=== PATIENT | female | born 1990 | race Caucasian/White ===

== ENCOUNTER 2019-10-05 08:30 | Outpatient (CLI) | payer OTHER ==
[2019-10-05 09:26] VITALS: BP 131/81; PULSE 78; RESP 18; TEMP 97.4
--- NOTE | 2019-10-06 06:39 | P.MSEPDOC ---
Presenting Problems - Arrival Data Date of Arrival on Unit: 10/05/19 Time of Arrival on Unit: 08:30 Mode of Transport: Ambulatory - Complaint OB-Reason for Admission/Chief Complaint: Vaginal Bleeding Medical History - Information : 1 Para: 0 Term: 0 : 0 Abortions: Spontaneous or Elective: 0 Number of Living Children: 0 - Gestational Age Gestational Age by TYLOR (wks/days): 40 Weeks and 0 Days - History Complications: GBS+ Review of Systems - Review of Systems Constitutional: No problems Breast: No problems ENT: No problems Cardiovascular: No problems Respiratory: No problems Gastrointestinal: No problems Genitourinary: No problems Musculoskeletal: No problems Neurological: No problems Skin: No problems Vital Signs - Temperature Temperature: 97.4 F Temperature Source: Temporal Artery Scan - Pulse Right Brachial Pulse Rate: 78 Pulse Assessment Method: Automatic Cuff - Respirations Respiratory Rate: 18 Oxygen Delivery Method: Room Air O2 Sat by Pulse Oximetry: 98 - Blood Pressure Right Arm Blood Pressure: 131/81 Blood Pressure Mean: 97 Blood Pressure Source: Automatic Cuff Medical Screen Scoring (Pre) - Cervical Exam Dilation: 1-3 cm = 1 Effacement: More than 50% = 2 Membranes: Intact - Uterine Contractions Frequency: > 5 minutes apart = 1 Duration: N/A Intensity: N/A - Maternal Vital Signs Maternal Temperature: N/A Maternal Blood Pressure: N/A Signs of Preeclampsia: N/A Maternal Respirations: N/A - Maternal Trauma Maternal Trauma: N/A - Assessment - Baby A Baseline FHR: 130 Heart Rate - NICHD Category: Category I (Normal) = 0 NST: Reactive Position: N/A Station: N/A - Total Score - Baby A Total Score - Baby A: 4 - Total Score - Baby B Total Score - Baby B: 4 - Total Score - Baby C Total Score - Baby C: 4 - Level of Risk - Baby A Level of Risk - Baby A: Low (0-5) - Level of Risk - Baby B Level of Risk - Baby B: Low (0-5) - Level of Risk - Baby C Level of Risk - Baby C: Low (0-5) Physician Notification (Pre) - Physician Notified Physician Notified Date: 10/05/19 Physician Notified Time: 09:03 New Order Received: Yes - Notification Comment Comment: hand held ultrasound at bedside to check fluid around baby, discharge pt home and return tomorrow for induction unless s/s of labor warrant earlier visit Disposition - Disposition OB Disposition: Triage, Discharge to home, Written follow up instructions reviewed Discharge Date: 10/05/19 Discharge Time: 09:15 I agree with the RN Medical Screening Exam: Yes Risk & Benefit of care provided described in d/c instruction: Yes Diagnosis: FALSE LABOR AT OR AFTER 37 COMPLETED WEEKS OF GESTATION
== END 2019-10-05 09:15 | disposition home or self-care (01) ==
LOC: FBPOP 08:30
PROVIDERS: ATTEND Obstetrics & Gynecology
DX: O47.1 False labor at or after 37 completed weeks of gestation (principal); Z3A.40 40 weeks gestation of pregnancy
CPT/HCPCS: 59025; 84112; 99213

== ENCOUNTER 2019-10-05 10:22 | Inpatient (IN) | payer OTHER ==
--- NOTE | 2019-10-05 09:14 | P.HPOB ---
History of Present Illness H&P Date: 10/05/19 Chief Complaint: Postdates induction. This patient is a pleasant 28-year-old 2 para 1 female estimated date of confinement 10/05/2019 estimated gestational age 40 and one sevenths weeks who is presenting to labor and delivery for induction of labor. Patient's care has been uncomplicated. Patient is requesting induction at this time. Review of Systems Genitourinary: Reports Menstruation: Reports amenorrhea Past Medical History Additional Past Medical History / Comment(s): Congenital right retinoblastoma. Age 4. Additional Past Surgical History / Comment(s): Left ear surgery and right eye surgery. Past Anesthesia/Blood Transfusion Reactions: No Reported Reaction Smoking Status: Never smoker Past Alcohol Use History: None Reported Past Drug Use History: None Reported Medications and Allergies Allergies Allergy/AdvReac Type Severity Reaction Status Date / Time Sulfa (Sulfonamide Allergy Unknown Verified 10/05/19 08:41 Antibiotics) Childhood Exam - OBG Physical Exam Abdomen: bowel sounds normal, no diffuse tenderness, no bruit present, no guarding noted, no hepatomegaly, no splenomegaly, no mass Vulva: both: normal Vagina: normal moisture, no discharge Cervix: no lesion (Cervix is 2 cm and soft.), no discharge Uterus: enlarged (Fundal height 38 cm) Results blood work shows she is O positive, rubella immune, RPR nonreactive, hepatitis B negative, HIV is nonreactive, Glucola was normal, ultrasounds have been normal. Group B strep was positive. Assessment and Plan Assessment: This is a pleasant 28-year-old 2 para 0 female 40 and one sevenths weeks gestation who is presenting to labor and delivery for elective induction of labor. Patient's also had a positive group B strep culture. Plan is antibiotic prophylaxis and anticipate vaginal delivery. (1) 40 weeks gestation of Status: Acute Code(s): Z3A.40 - 40 WEEKS GESTATION OF SNOMED Code(s): 69687899 (2) Group B streptococcal carriage complicating Status: Acute Code(s): O99.820 - STREPTOCOCCUS B CARRIER STATE COMPLICATING SNOMED Code(s): 667821300424970 (3) Elective induction of labor planned Status: Acute Code(s): BKW9961 - SNOMED Code(s): 388768955
[2019-10-06] MEDS ORDERED: OXYTOCIN 10 UNIT/ML 1 ML VIAL IM PRN (06:05)
[2019-10-06] MEDS ORDERED: AMPICILLIN 2,000 MG in SODIUM CHLORIDE 0.9% 100 ML IVPB STA (06:05)
[2019-10-06] MEDS ORDERED: LIDOCAINE 0.5% (PF) 5 MG/ML (50 ML SDV) SQ PRN (06:05)
[2019-10-06] MEDS ORDERED: TERBUTALINE 1 MG/ML VIAL SQ PRN (06:05)
[2019-10-06] MEDS ORDERED: OXYTOCIN 30 UNITS/500 ML NS 30 UNIT in SALINE 1 500ML.BAG IV SCH (06:05)
[2019-10-06] MEDS ORDERED: METHYLERGONOVINE 0.2 MG/ML 1 ML AMP IM PRN (06:05)
[2019-10-06] MEDS ORDERED: CARBOPROST TROMETHAMINE 250 MCG/ML 1 ML AMP IM PRN (06:05)
[2019-10-06] MEDS: LACTATED RINGERS 1,000 ML IV SCH ×2 (06:21→08:43)
[2019-10-06 06:32] LABS: Basophils % (A) 0 %; Eosinophils # (A) 0.1 k/uL (0-0.7); Eosinophils % (A) 2 %; HCT 38.7 % (34.0-46.0); HGB 13.5 gm/dL (11.4-16.0); Lymphocytes # (A) 2.9 k/uL (1.0-4.8); Lymphocytes % (A) 34 %; MCH 30.8 pg (25.0-35.0); MCHC 34.9 g/dL (31.0-37.0); MCV 88.3 fL (80.0-100.0); Mean Platelet Volume 8.9; Monocytes # (A) 0.4 k/uL (0-1.0); Monocytes % (A) 4 %; Neutrophils # (A) 5.1 k/uL (1.3-7.7); Neutrophils % (A) 59 %; Platelet Count 248 k/uL (150-450); RBC 4.38 m/uL (3.80-5.40); RDW 12.5 % (11.5-15.5); WBC 8.7 k/uL (3.8-10.6)
[2019-10-06 06:37] VITALS: RESP 16
[2019-10-06] MEDS ORDERED: BUTORPHANOL 1 MG/ML 1 ML VIAL IV PRN (06:38)
[2019-10-06] MEDS ORDERED: AMPICILLIN 1,000 MG in SODIUM CHLORIDE 0.9% 50 ML IVPB SCH (10:00)
[2019-10-06] MEDS ORDERED: ROPIVACAINE 100 MG, fentaNYL (PF) 200 MCG in SODIUM CHLORIDE 0.9% 76 ML EPIDURAL ONE (10:29)
[2019-10-06] MEDS ORDERED: OXYTOCIN 20 UNITS/1000 ML NS 1,000 ML IV SCH (12:01)
[2019-10-06] MEDS ORDERED: SIMETHICONE 80 MG CHEWABLE PO PRN (12:01)
[2019-10-06] MEDS ORDERED: diphenhydrAMINE 50 MG/ML 1 ML VIAL IVP PRN (12:01)
[2019-10-06] MEDS ORDERED: LANOLIN CREAM 5 GM TUBE TOPICAL PRN (12:01)
[2019-10-06] MEDS ORDERED: ACETAMINOPHEN TAB 325 MG TAB PO PRN (12:01)
[2019-10-06] MEDS ORDERED: BISACODYL 10 MG SUPP RECTAL PRN (12:01)
[2019-10-06] MEDS ORDERED: WITCH HAZEL 1 EACH MED..PAD TOPICAL PRN (12:01)
[2019-10-06] MEDS ORDERED: BENZOCAINE/MENTHOL SPRAY 1 GM/SPRAY AEROSOL TOPICAL PRN (12:01)
[2019-10-06] MEDS ORDERED: HYDROCORTISONE 2.5% RECTAL CREAM 30 GM TUBE RECTAL PRN (12:01)
[2019-10-06] MEDS ORDERED: diphenhydrAMINE 25 MG CAP PO PRN (12:01)
[2019-10-06] MEDS ORDERED: ZOLPIDEM 5 MG TAB PO PRN (12:01)
--- NOTE | 2019-10-06 12:42 | P.PROBDLV ---
Vaginal Delivery Note - . Vaginal Delivery Note: Normal vaginal delivery viable male infant Apgars 8 and 9 delivery time is 1128 hrs. Please see dictated H&P for intimate details of this patient's admission. Brief summary this is a pleasant 28-year-old 2 para 0 female estimated gestational age 40 and one sevenths weeks who is admitted to labor and delivery for induction of labor. On admission patient is 2 cm dilated has artificial rupture membranes for lightly tinged meconium fluid. heart tones are reassuring. Patient's labor is induced with Pitocin per protocol. Patient received one dose of Stadol and then receives an epidural for pain control. Labor progresses very quickly and she gets to complete. She pushes the head to the perineum the posterior perineum is supported. We have controlled delivery of the infant's head over the intact perineum. Mouth and nares are bulb suctioned there is no evidence of a nuchal cord. With gentle downward traction we then have deliver the anterior and posterior shoulder and rest this 's body. Is a vigorous viable male Apgars are 8 and 9 delivery time was 1128 hrs. Infant has spontaneous respirations and good cry and low pressure firer is present for delivery. is late the mother's abdomen. The cord is allowed to stop pulsating. Cord is then doubly clamped and cut and appears to be trivascular. Placenta is then spontaneously delivered intact. Estimated blood loss is 150 mL. Is a first-degree posterior laceration was repaired with 3-0 Vicryl usual fashion good reapproximation is noted. All counts correct 3. There are no complications. Infant and mother stable delivery room.
[2019-10-06] MEDS: IBUPROFEN 600 MG TAB PO PRN (17:54)
[2019-10-07] MEDS: IBUPROFEN 600 MG TAB PO PRN ×2 (00:06→07:47)
[2019-10-07] MEDS: SENNOSIDES-DOCUSATE SODIUM 1 EACH TAB PO SCH ×2 (05:30→07:46)
--- NOTE | 2019-10-07 06:43 | P.PNOBGVD ---
Subjective - Subjective Patient reports: Reports appetite normal, Reports voiding normally, Reports pain well controlled, Reports ambulating normally : doing well Objective - Latest Vital Signs Latest vital signs: Vital Signs Temp Pulse Resp BP Pulse Ox 10/07/19 00:00 98.0 F 80 16 120/62 10/06/19 20:00 98.4 F 108 H 16 122/82 10/06/19 15:33 99.1 F 71 16 111/64 98 10/06/19 14:00 82 16 103/61 10/06/19 13:26 81 16 108/56 10/06/19 13:01 100.2 F H 78 16 102/51 10/06/19 12:46 75 16 108/52 10/06/19 12:28 82 16 111/62 10/06/19 12:14 85 16 121/82 10/06/19 12:01 80 16 112/88 Intake and Output 10/06/19 10/06/19 10/07/19 14:59 22:59 06:59 Output Total 150 Balance -150 Output: Estimated Blood Loss 150 Other: # Voids 1 - Exam Lungs: bilateral: normal Chest: Normal S1, Normal S2 Extremities: Present: normal Abdomen: Present: normal appearance, soft Uterus: Present: normal, firm Assessment and Plan Assessment: day #1. Patient is resting without complaints. Vital signs are stable she is afebrile. Uterus is firm nontender she's having normal lochia. Baby is having some difficulty feeding and therefore most likely patient will stay today, however we'll reevaluate later today for possible discharge. (1) 40 weeks gestation of Current Visit: No Status: Acute Code(s): Z3A.40 - 40 WEEKS GESTATION OF SNOMED Code(s): 21995215 (2) Group B streptococcal carriage complicating Current Visit: No Status: Acute Code(s): O99.820 - STREPTOCOCCUS B CARRIER STATE COMPLICATING SNOMED Code(s): 887415199018542 (3) Elective induction of labor planned Current Visit: No Status: Acute Code(s): VIJ3611 - SNOMED Code(s): 554977181
[2019-10-07 16:12] VITALS: BP 114/68; PULSE 78; TEMP 97.8
--- NOTE | 2019-10-07 16:36 | P.DS ---
Providers Date of admission: 10/06/19 05:45 Expected date of discharge: 10/07/19 Attending physician: Bala Ruiz Primary care physician: Matt Armijoor - Discharge Diagnosis(es) (1) 40 weeks gestation of Current Visit: No Status: Acute (2) Group B streptococcal carriage complicating Current Visit: No Status: Acute (3) Elective induction of labor planned Current Visit: No Status: Acute Hospital Course: Please see dictated H&P for intimate details of this patient's admission. Brief summary this is a pleasant 28-year-old 2 para 0 female 40 and one sevenths weeks gestation admitted for induction of labor. Patient is admitted she is given antibiotics for positive strep culture, she has induction of labor and quickly goes on to have a vaginal delivery viable male . Please see dictated delivery note. day #1 patient's felt be stable for discharge home follow up with me in 6 weeks Patient Condition at Discharge: Good Plan - Discharge Summary New Discharge Prescriptions: New Ibuprofen [Motrin] 600 mg PO Q6HR PRN #30 tab PRN Reason: Mild Pain Or Fever >= 100.5 No Action Pnv No.95/Ferrous Fum/Folic AC [ Multivitamin Tablet] 1 each PO DAILY Discharge Medication List Pnv No.95/Ferrous Fum/Folic AC [ Multivitamin Tablet] 1 each PO DAILY 10/06/19 [History] Ibuprofen [Motrin] 600 mg PO Q6HR PRN #30 tab 10/07/19 [Rx] Follow up Appointment(s)/Referral(s): Bala Ruiz MD [STAFF PHYSICIAN] - 11/13/19 10:30 am Patient Instructions/Handouts: Vaginal Delivery (DC) Activity/Diet/Wound Care/Special Instructions: No intercourse or anything per vagina for 6 weeks. Please call if any fever, chills, excessive vaginal bleeding, and/or abdominal pain. Discharge Disposition: HOME SELF-CARE
== END 2019-10-07 16:55 | disposition home or self-care (01) | DRG 807 ==
LOC: 4FBP 10-06 05:45
PROVIDERS: ADMIT Obstetrics & Gynecology; ATTEND Obstetrics & Gynecology
PROC: 10907ZC Drainage of Amniotic Fluid, Therapeutic from Products of Conception, Via Natural or Artificial Opening (ICD-10-PCS; principal; 2019-10-06)
PROC: 00HU33Z Insertion of Infusion Device into Spinal Canal, Percutaneous Approach (ICD-10-PCS; principal; 2019-10-06)
PROC: 3E0R3NZ Introduction of Analgesics, Hypnotics, Sedatives into Spinal Canal, Percutaneous Approach (ICD-10-PCS; principal; 2019-10-06)
PROC: 10E0XZZ Delivery of Products of Conception, External Approach (ICD-10-PCS; principal; 2019-10-06)
PROC: 3E033VJ Introduction of Other Hormone into Peripheral Vein, Percutaneous Approach (ICD-10-PCS; principal; 2019-10-06)
DX: O48.0 Post-term pregnancy (principal); Z37.0 Single live birth; Z3A.40 40 weeks gestation of pregnancy; Z85.840 Personal history of malignant neoplasm of eye; O99.824 Streptococcus B carrier state complicating childbirth; O77.0 Labor and delivery complicated by meconium in amniotic fluid; Z88.2 Allergy status to sulfonamides
CPT/HCPCS: 85025; 86850; 86900; 86901; 88307

== ENCOUNTER 2021-06-10 23:54 | Outpatient (CLI) | payer OTHER ==
--- NOTE | 2021-06-11 00:58 | US ---
EXAMINATION TYPE: US OB >= 14 wk fetus DATE OF EXAM: 06/11/2021 COMPARISON: None CLINICAL HISTORY: Trauma to lower abdomen TECHNIQUE: Transabdominal (TA) GESTATIONAL AGE / DATING Physician Established: 07/05/2021 (36 weeks/4 days) EDC: 07/05/2021 Dates by First Scan: No previous this is first scan Dates by Current Scan: (37 weeks/0 days) EDC: 07/05/2021 Beta HCG (if available): not available SURVEY IUP: Single PLACENTA: Fundal PREVIA: No Previa JUAN: 13.2 cm Normal CERVICAL LENGTH (transabdominal: norm > 3.0cm): 3.4 cm BIOMETRY PRESENTATION: Vertex BPD: 8.9 cm 36 weeks / 0 days HC: 33.7 cm 38 weeks / 5 days AC: 31.6 cm 35 weeks / 4 days FL: 7.3 cm 37 weeks / 2 days ESTIMATED WEIGHT IN GRAMS: 2926 grams ESTIMATED WEIGHT IN LBS/OZ: 6 lbs. 7 oz. WEIGHT PERCENTAGE BASED ON ESTABLISHED DATES: 49% HC/AC: 1.07 Normal FL/AC: 23 Normal HEART RATE: 136 bpm RHYTHM: Normal No abnormality detected. IMPRESSION: No complicating process seen.
[2021-06-11 01:51] VITALS: BP 114/67; PULSE 76; RESP 18; TEMP 97.4
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
== END 2021-06-11 00:45 | disposition home or self-care (01) ==
LOC: FBPOP 23:54
PROVIDERS: ATTEND Obstetrics & Gynecology
DX: O71.7 Obstetric hematoma of pelvis (principal); Z3A.36 36 weeks gestation of pregnancy
CPT/HCPCS: 59025; 76805; 99213

== ENCOUNTER 2021-07-06 00:04 | Inpatient (IN) | payer OTHER ==
[2021-07-06] MEDS ORDERED: METHYLERGONOVINE 0.2 MG/ML 1 ML AMP IM PRN (00:12)
[2021-07-06] MEDS ORDERED: OXYTOCIN 10 UNIT/ML 1 ML VIAL IM PRN (00:12)
[2021-07-06] MEDS ORDERED: AMPICILLIN 2,000 MG in SODIUM CHLORIDE 0.9% 100 ML IVPB STA (00:12)
[2021-07-06] MEDS ORDERED: CARBOPROST TROMETHAMINE 250 MCG/ML 1 ML AMP IM PRN (00:12)
[2021-07-06] MEDS ORDERED: LIDOCAINE 0.5% (PF) 5 MG/ML (50 ML SDV) SQ PRN (00:12)
[2021-07-06] MEDS ORDERED: TERBUTALINE 1 MG/ML VIAL SQ PRN (00:12)
[2021-07-06] MEDS ORDERED: OXYTOCIN 30 UNITS/500 ML NS 30 UNIT in SALINE 1 500ML.BAG IV SCH ×2 (00:15→04:15)
[2021-07-06 00:24] VITALS: RESP 16
[2021-07-06] MEDS: LACTATED RINGERS 1,000 ML IV SCH ×2 (00:24→00:39)
[2021-07-06 00:37] LABS: Basophils # (A) 0.1 k/uL (0-0.2); Basophils % (A) 1 %; Eosinophils # (A) 0.2 k/uL (0-0.7); Eosinophils % (A) 2 %; HCT 40.6 % (34.0-46.0); HGB 14.1 gm/dL (11.4-16.0); Lymphocytes # (A) 3.1 k/uL (1.0-4.8); Lymphocytes % (A) 33 %; MCH 30.8 pg (25.0-35.0); MCHC 34.8 g/dL (31.0-37.0); MCV 88.6 fL (80.0-100.0); Mean Platelet Volume 8.2; Monocytes # (A) 0.4 k/uL (0-1.0); Monocytes % (A) 5 %; Neutrophils # (A) 5.5 k/uL (1.3-7.7); Neutrophils % (A) 58 %; Platelet Count 235 k/uL (150-450); RBC 4.58 m/uL (3.80-5.40); RDW 13.5 % (11.5-15.5); WBC 9.4 k/uL (3.8-10.6)
[2021-07-06] MEDS ORDERED: ROPIVACAINE 100 MG, fentaNYL (PF). 200 MCG in SODIUM CHLORIDE 0.9% 76 ML EPIDURAL ONE (00:46)
--- NOTE | 2021-07-06 02:05 | P.HPOB ---
History of Present Illness H&P Date: 07/06/21 Chief Complaint: labor 30 year old presents at 40 weeks 1 day in labor. Her cervix is 5-6/90/-2 and she is garrison every 2-3 minutes. heart tones 140 with moderate variability and reactive. Review of Systems All systems: negative Constitutional: Denies chills, Denies fever Eyes: denies blurred vision, denies pain Ears, nose, mouth and throat: Denies headache, Denies sore throat Cardiovascular: Denies chest pain, Denies shortness of breath Respiratory: Denies cough Gastrointestinal: Denies abdominal pain, Denies diarrhea, Denies nausea, Denies vomiting Genitourinary: Denies dysuria, Denies hematuria Musculoskeletal: Denies myalgias Integumentary: Denies pruritus, Denies rash Neurological: Denies numbness, Denies weakness Psychiatric: Denies anxiety, Denies depression Endocrine: Denies fatigue, Denies weight change Past Medical History Additional Past Medical History / Comment(s): Congenital right retinoblastoma. Age 4. History of Any Multi-Drug Resistant Organisms: None Reported Additional Past Surgical History / Comment(s): Left ear surgery and right eye surgery. Past Anesthesia/Blood Transfusion Reactions: No Reported Reaction Past Psychological History: No Psychological Hx Reported Smoking Status: Never smoker Past Alcohol Use History: None Reported Past Drug Use History: None Reported - Past Family History Father Family Medical History: Cancer Additional Family Medical History / Comment(s): cancer Medications and Allergies Home Medications Medication Instructions Recorded Confirmed Type Pnv No.95/Ferrous Fum/Folic AC 1 each PO DAILY 10/06/19 07/06/21 History [ Multivitamin Tablet] Ciprofloxacin HCl/Dexameth 5 drops LEFT EAR BID 07/06/21 07/06/21 History [Ciproflox-Dexameth Otic Susp] Allergies Allergy/AdvReac Type Severity Reaction Status Date / Time Sulfa (Sulfonamide Allergy Unknown Verified 07/06/21 00:11 Antibiotics) Childhood Exam Osteopathic Statement: *. No significant issues noted on an osteopathic structural exam other than those noted in the History and Physical/Consult. Vital Signs Temp Pulse Resp BP 07/06/21 00:14 97.4 F L 79 16 115/79 Intake and Output 07/05/21 07/05/21 07/06/21 14:59 22:59 06:59 Other: Weight 72.575 kg Heart: Regular rate and rhythm Lungs: Clear to auscultation bilaterally Abdomen: Soft, nontender Extremities: Negative Homans sign Results Result Diagrams: 07/06/21 00:13 Assessment and Plan (1) Normal labor Current Visit: Yes Status: Acute Code(s): O80 - ENCOUNTER FOR FULL-TERM UNCOMPLICATED DELIVERY; Z37.9 - OUTCOME OF DELIVERY, UNSPECIFIED SNOMED Code(s): 40731254 (2) 40 weeks gestation of Current Visit: No Status: Acute Code(s): Z3A.40 - 40 WEEKS GESTATION OF SNOMED Code(s): 22958946 Plan: 1. admit to [facility] 2. epidural for pain control 3. expectant management 4. anticipate normal vaginal delivery
[2021-07-06] MEDS ORDERED: HYDROCORTISONE 2.5% RECTAL CREAM 30 GM TUBE RECTAL PRN (04:02)
[2021-07-06] MEDS ORDERED: SIMETHICONE 80 MG CHEWABLE PO PRN (04:02)
[2021-07-06] MEDS ORDERED: BENZOCAINE/MENTHOL SPRAY 1 GM/SPRAY AEROSOL TOPICAL PRN (04:02)
[2021-07-06] MEDS ORDERED: ACETAMINOPHEN TAB 325 MG TAB PO PRN (04:02)
[2021-07-06] MEDS ORDERED: IBUPROFEN 600 MG TAB PO PRN (04:02)
[2021-07-06] MEDS ORDERED: LANOLIN CREAM 5 GM TUBE TOPICAL PRN (04:02)
[2021-07-06] MEDS ORDERED: diphenhydrAMINE 25 MG CAP PO PRN (04:02)
[2021-07-06] MEDS ORDERED: ZOLPIDEM 5 MG TAB PO PRN (04:02)
[2021-07-06] MEDS ORDERED: diphenhydrAMINE 50 MG CAP PO PRN (04:02)
[2021-07-06] MEDS ORDERED: diphenhydrAMINE 50 MG/ML 1 ML VIAL IVP PRN ×2 (04:02)
--- NOTE | 2021-07-06 04:02 | P.PROBDLV ---
Vaginal Delivery Note - . Vaginal Delivery Note: 30 year old presents at 40 weeks 1 day in labor. Her cervix is 5-6/90/-2 and she is garrison every 2-3 minutes. heart tones 140 with moderate variability and reactive. She is admitted to [facility] and received an epidural. Her cervix is completely dilated at 3:42 AM and amniotomy performed at 3:45 AM, clear fluid noted. She pushed, and delivered a viable female over intact perineum under epidural anesthesia at 3:51 AM. Head delivered OA, anterior shoulder delivered gentle downward guidance followed by posterior shoulder and rest of body. Nose and mouth bulb suctioned, cord clamped and cut, placed mother's abdomen. Apgars 9, 9, weight 7 pounds 6.2 ounces. Placenta delivered spontaneously, intact with three-vessel cord at 3:53 AM. Vagina, cervix, and perineum were inspected. No lacerations noted. Estimated blood loss 150 mL. Mother and baby in stable condition.
[2021-07-06] MEDS ORDERED: AMPICILLIN 1,000 MG in SODIUM CHLORIDE 0.9% 50 ML IVPB SCH (04:30)
[2021-07-06] MEDS: SENNOSIDES-DOCUSATE SODIUM 1 EACH TAB PO SCH ×2 (11:11→21:40)
[2021-07-07 01:37] VITALS: TEMP 98.4
[2021-07-07 07:03] LABS: Basophils % (A) 0 %; Eosinophils # (A) 0.2 k/uL (0-0.7); Eosinophils % (A) 2 %; HCT 37.1 % (34.0-46.0); HGB 12.9 gm/dL (11.4-16.0); Lymphocytes % (A) 31 %; MCH 31.2 pg (25.0-35.0); MCHC 34.8 g/dL (31.0-37.0); MCV 89.5 fL (80.0-100.0); Mean Platelet Volume 8.5; Monocytes # (A) 0.4 k/uL (0-1.0); Monocytes % (A) 4 %; Neutrophils # (A) 5.8 k/uL (1.3-7.7); Neutrophils % (A) 61 %; Platelet Count 190 k/uL (150-450); RBC 4.15 m/uL (3.80-5.40); WBC 9.6 k/uL (3.8-10.6)
--- NOTE | 2021-07-07 08:44 | P.DS ---
Providers Date of admission: 07/06/21 00:04 Expected date of discharge: 07/07/21 Attending physician: Bala Ruiz Primary care physician: Stated None Hospital Course: Cary is doing very well day 1. She is ambulating, voiding and tolerating her diet. She voices no complaints is requesting discharge home today. Vital signs are stable and she is afebrile. Heart regular, lungs clear, extremities without pain. Abdomen soft, nontender, L sounds are noted and her uterus is firm below the umbilicus. Assessment day 1. Plan discharged home follow up with Dr. Ruiz in 6 weeks. Discharge instructions were otherwise reviewed and all questions were answered for her prior to her discharge. Patient Condition at Discharge: Good Plan - Discharge Summary New Discharge Prescriptions: New Ibuprofen [Motrin] 600 mg PO Q6HR PRN #30 tab PRN Reason: Pain No Action Pnv No.95/Ferrous Fum/Folic AC [ Multivitamin Tablet] 1 each PO DAILY Ciprofloxacin HCl/Dexameth [Ciproflox-Dexameth Otic Susp] 5 drops LEFT EAR BID Discharge Medication List Pnv No.95/Ferrous Fum/Folic AC [ Multivitamin Tablet] 1 each PO DAILY 10/06/19 [History] Ciprofloxacin HCl/Dexameth [Ciproflox-Dexameth Otic Susp] 5 drops LEFT EAR BID 07/06/21 [History] Ibuprofen [Motrin] 600 mg PO Q6HR PRN #30 tab 07/06/21 [Rx] Follow up Appointment(s)/Referral(s): Bala Ruiz MD [STAFF PHYSICIAN] - 08/15/21 11:15 am Patient Instructions/Handouts: Vaginal Delivery (DC) Activity/Diet/Wound Care/Special Instructions: No intercourse or anything per vagina for 6 weeks. Please call if any fever, chills, excessive vaginal bleeding, and/or abdominal pain. Discharge Disposition: HOME SELF-CARE
[2021-07-07 11:01] VITALS: BP 106/50; PULSE 66
[2021-07-07] MEDS: SENNOSIDES-DOCUSATE SODIUM 1 EACH TAB PO SCH (15:14)
== END 2021-07-07 15:10 | disposition home or self-care (01) | DRG 807 ==
LOC: 4FBP 00:04
PROVIDERS: ADMIT Obstetrics & Gynecology; ATTEND Obstetrics & Gynecology
PROC: 10E0XZZ Delivery of Products of Conception, External Approach (ICD-10-PCS; principal; 2021-07-06)
DX: O80 Encounter for full-term uncomplicated delivery (principal); Z37.0 Single live birth; Z3A.40 40 weeks gestation of pregnancy; Z85.840 Personal history of malignant neoplasm of eye
CPT/HCPCS: 85025; 86850; 86900; 86901

== ENCOUNTER 2022-01-28 08:23 | Emergency (ER) | payer OTHER ==
[2022-01-28] MEDS ORDERED: DIPHENOX-ATROP 2.5-0.025 MG 1 EACH TAB PO STA (08:33)
[2022-01-28] MEDS ORDERED: ONDANSETRON 4 MG/2 ML VIAL IVP STA (08:33)
[2022-01-28] MEDS ORDERED: SODIUM CHLORIDE 0.9% 500 ML 500 ML IV STA (08:33)
[2022-01-28] MEDS ORDERED: SODIUM CHLORIDE 0.9% 1,000 ML IV STA (08:33)
--- NOTE | 2022-01-28 08:36 | ED ---
General Adult HPI - General Chief complaint: Nausea/Vomiting/Diarrhea Stated complaint: Nausea/Vomiting Time Seen by Provider: 01/28/22 08:25 Source: patient, RN notes reviewed, old records reviewed Mode of arrival: ambulatory Limitations: no limitations - History of Present Illness Initial comments: This is a 31-year-old female presents emergency department stating that she has been having nausea vomiting and diarrhea for about 11 hours. Patient states she has general abdominal pain but mostly secondary to vomiting she thinks. Patient denies any dysuria hematuria urinary frequency. Patient denies any point tenderness of the abdomen. Patient denies any back pain. Patient denies any chest pain difficulty breathing shortness of breath. Patient states she has a mild headache secondary to the fact she didn't sleep at all last night. - Related Data Home Medications Medication Instructions Recorded Confirmed Pnv No.95/Ferrous Fum/Folic AC 1 each PO DAILY 10/06/19 07/06/21 [ Multivitamin Tablet] Ciprofloxacin HCl/Dexameth 5 drops LEFT EAR BID 07/06/21 07/06/21 [Ciproflox-Dexameth Otic Susp] Previous Rx's Medication Instructions Recorded Ibuprofen [Motrin] 600 mg PO Q6HR PRN #30 tab 07/06/21 Allergies Allergy/AdvReac Type Severity Reaction Status Date / Time Sulfa (Sulfonamide Allergy Unknown Verified 01/28/22 08:27 Antibiotics) Childhood Review of Systems ROS Statement: Those systems with pertinent positive or pertinent negative responses have been documented in the HPI. ROS Other: All systems not noted in ROS Statement are negative. Past Medical History Additional Past Medical History / Comment(s): Congenital right retinoblastoma. Age 4. History of Any Multi-Drug Resistant Organisms: None Reported Additional Past Surgical History / Comment(s): Left ear surgery and right eye surgery. Past Anesthesia/Blood Transfusion Reactions: No Reported Reaction Past Psychological History: No Psychological Hx Reported Smoking Status: Never smoker Past Alcohol Use History: Occasional Past Drug Use History: None Reported - Past Family History Father Family Medical History: Cancer Additional Family Medical History / Comment(s): cancer General Exam - General Exam Comments Initial Comments: GENERAL: Patient is well-developed and well-nourished. Patient is nontoxic and well- hydrated and is in mild distress. ENT: Neck is soft and supple. No significant lymphadenopathy is noted. Oropharynx is clear. Dry mucous membranes. Neck has full range of motion without elic iting any pain. EYES: The sclera were anicteric and conjunctiva were pink and moist. Extraocular m ovements were intact and pupils were equal round and reactive to light. Eyelids were unremarkable. PULMONARY: Unlabored respirations. Good breath sounds bilaterally. No audible rales rhonchi or wheezing was noted. CARDIOVASCULAR: There is a regular rate and rhythm without any murmurs gallops or rubs. ABDOMEN: Soft and nontender with normal bowel sounds. SKIN: Skin is clear with no lesions or rashes and otherwise unremarkable. NEUROLOGIC: Patient is alert and oriented x3. Cranial nerves II through XII are grossly intact. Motor and sensory are also intact. Normal speech, volume and content. Symmetrical smile. MUSCULOSKELETAL: Normal extremities with adequate strength and full range of motion. LYMPHATICS: No significant lymphadenopathy is noted PSYCHIATRIC: Normal psychiatric evaluation. Limitations: no limitations Course Vital Signs 01/28/22 08:24 Temperature 98.6 F Pulse Rate 106 H Respiratory 18 Rate Blood Pressure 103/68 O2 Sat by Pulse 96 Oximetry Medical Decision Making - Medical Decision Making I will back into the room after the patient had received Zofran and Lomotil and she also received 1-1/2 L of normal saline. Patient states she was feeling considerably better and she no longer was vomiting or having diarrhea. Patient will be sent home with some Zofran. - Lab Data Result diagrams: 01/28/22 08:48 01/28/22 08:48 Lab Results 01/28/22 01/28/22 01/28/22 Range/Units 08:48 08:48 08:58 WBC 10.0 (3.8-10.6) k/uL RBC 5.57 H (3.80-5.40) m/uL Hgb 16.9 H (11.4-16.0) gm/dL Hct 48.9 H (34.0-46.0) % MCV 87.9 (80.0-100.0) fL MCH 30.3 (25.0-35.0) pg MCHC 34.5 (31.0-37.0) g/dL RDW 12.8 (11.5-15.5) % Plt Count 244 (150-450) k/uL MPV 7.1 Neutrophils % 94 % Lymphocytes % 2 % Monocytes % 2 % Eosinophils % 1 % Basophils % 0 % Neutrophils # 9.5 H (1.3-7.7) k/uL Lymphocytes # 0.2 L (1.0-4.8) k/uL Monocytes # 0.2 (0-1.0) k/uL Eosinophils # 0.1 (0-0.7) k/uL Basophils # 0.0 (0-0.2) k/uL Manual Slide Review Performed RBC Morphology Normal Sodium 138 (137-145) mmol/L Potassium 4.4 (3.5-5.1) mmol/L Chloride 107 (98-107) mmol/L Carbon Dioxide 17 L (22-30) mmol/L Anion Gap 14 mmol/L BUN 19 H (7-17) mg/dL Creatinine 0.84 (0.52-1.04) mg/dL Est GFR (CKD-EPI)AfAm >90 (>60 ml/min/1.73 sqM) Est GFR (CKD-EPI)NonAf >90 (>60 ml/min/1.73 sqM) Glucose 137 H (74-99) mg/dL Calcium 9.1 (8.4-10.2) mg/dL Total Bilirubin 3.0 H (0.2-1.3) mg/dL AST 29 (14-36) U/L ALT 25 (4-34) U/L Alkaline Phosphatase 69 (38-126) U/L Total Protein 8.1 (6.3-8.2) g/dL Albumin 4.9 (3.5-5.0) g/dL Amylase 83 (30-110) U/L Lipase 57 (23-300) U/L Urine Color Yellow Urine Appearance Cloudy H (Clear) Urine pH 5.5 (5.0-8.0) Ur Specific [place] 1.032 (1.001-1.035) Urine Protein 1+ H (Negative) Urine Glucose (UA) Negative (Negative) Urine Ketones 1+ H (Negative) Urine Blood Trace H (Negative) Urine Nitrite Negative (Negative) Urine Bilirubin Negative (Negative) Urine Urobilinogen <2.0 (<2.0) mg/dL Ur Leukocyte Esterase Small H (Negative) Urine RBC 1 (0-5) /hpf Urine WBC 2 (0-5) /hpf Ur Squamous Epith Cells 4 (0-4) /hpf Urine Bacteria Rare H (None) /hpf Urine Mucus Many H (None) /hpf Urine HCG, Qual (Not Detectd) 01/28/22 Range/Units 08:58 WBC (3.8-10.6) k/uL RBC (3.80-5.40) m/uL Hgb (11.4-16.0) gm/dL Hct (34.0-46.0) % MCV (80.0-100.0) fL MCH (25.0-35.0) pg MCHC (31.0-37.0) g/dL RDW (11.5-15.5) % Plt Count (150-450) k/uL MPV Neutrophils % % Lymphocytes % % Monocytes % % Eosinophils % % Basophils % % Neutrophils # (1.3-7.7) k/uL Lymphocytes # (1.0-4.8) k/uL Monocytes # (0-1.0) k/uL Eosinophils # (0-0.7) k/uL Basophils # (0-0.2) k/uL Manual Slide Review RBC Morphology Sodium (137-145) mmol/L Potassium (3.5-5.1) mmol/L Chloride (98-107) mmol/L Carbon Dioxide (22-30) mmol/L Anion Gap mmol/L BUN (7-17) mg/dL Creatinine (0.52-1.04) mg/dL Est GFR (CKD-EPI)AfAm (>60 ml/min/1.73 sqM) Est GFR (CKD-EPI)NonAf (>60 ml/min/1.73 sqM) Glucose (74-99) mg/dL Calcium (8.4-10.2) mg/dL Total Bilirubin (0.2-1.3) mg/dL AST (14-36) U/L ALT (4-34) U/L Alkaline Phosphatase (38-126) U/L Total Protein (6.3-8.2) g/dL Albumin (3.5-5.0) g/dL Amylase (30-110) U/L Lipase (23-300) U/L Urine Color Urine Appearance (Clear) Urine pH (5.0-8.0) Ur Specific [place] (1.001-1.035) Urine Protein (Negative) Urine Glucose (UA) (Negative) Urine Ketones (Negative) Urine Blood (Negative) Urine Nitrite (Negative) Urine Bilirubin (Negative) Urine Urobilinogen (<2.0) mg/dL Ur Leukocyte Esterase (Negative) Urine RBC (0-5) /hpf Urine WBC (0-5) /hpf Ur Squamous Epith Cells (0-4) /hpf Urine Bacteria (None) /hpf Urine Mucus (None) /hpf Urine HCG, Qual Not Detected (Not Detectd) Disposition Clinical Impression: Gastroenteritis Disposition: HOME SELF-CARE Instructions (If sedation given, give patient instructions): Gastroenteritis (ED) Is patient prescribed a controlled substance at d/c from ED?: No Referrals: Nonstaff,Physician [Primary Care Provider] - 1-2 days Time of Disposition: 10:10
[2022-01-28 08:57] VITALS: RESP 18; TEMP 98.6
[2022-01-28 09:00] LABS: Basophils % (A) 0 %; Eosinophils # (A) 0.1 k/uL (0-0.7); Eosinophils % (A) 1 %; HCT 48.9 % (34.0-46.0); HGB 16.9 gm/dL (11.4-16.0); Lymphocytes # (A) 0.2 k/uL (1.0-4.8); Lymphocytes % (A) 2 %; MCH 30.3 pg (25.0-35.0); MCHC 34.5 g/dL (31.0-37.0); MCV 87.9 fL (80.0-100.0); Mean Platelet Volume 7.1; Monocytes # (A) 0.2 k/uL (0-1.0); Monocytes % (A) 2 %; Neutrophils # (A) 9.5 k/uL (1.3-7.7); Neutrophils % (A) 94 %; Platelet Count 244 k/uL (150-450); RBC 5.57 m/uL (3.80-5.40); RDW 12.8 % (11.5-15.5)
[2022-01-28 09:02] LABS: ALT 25 U/L (4-34); AST 29 U/L (14-36); African American GFR (CKD) >90 (>60 ml/min/1.73 sqM); Albumin 4.9 g/dL (3.5-5.0); Alkaline Phosphatase 69 U/L (38-126); Amylase 83 U/L (30-110); Anion Gap 14 mmol/L; Blood Urea Nitrogen 19 mg/dL (7-17); Calcium 9.1 mg/dL (8.4-10.2); Carbon Dioxide 17 mmol/L (22-30); Chloride 107 mmol/L (98-107); Glucose 137 mg/dL (74-99); Lipase 57 U/L (23-300); Non-African American GFR(CKD) >90 (>60 ml/min/1.73 sqM); Potassium 4.4 mmol/L (3.5-5.1); Sodium 138 mmol/L (137-145); Total Protein 8.1 g/dL (6.3-8.2)
[2022-01-28 09:05] LABS: Appearance,Urine Cloudy (Clear); Bacteria,Urine Rare /hpf; Bilirubin,Urine Negative (Negative); Blood,Urine Trace (Negative); Color,Urine Yellow; Glucose,Urine (UA) Negative (Negative); Ketones,Urine 1+ (Negative); Leukocyte Esterase,Urine Small (Negative); Mucus,Urine Many /hpf; Nitrite,Urine Negative (Negative); PH, Urine 5.5 (5.0-8.0); Protein,Urine 1+ (Negative); RBC,Urine 1 /hpf (0-5); Specific Gravity,Urine 1.032 (1.001-1.035); Squamous Epithelial Cell,Urine 4 /hpf (0-4); Urobilinogen,Urine <2.0 mg/dL (<2.0); WBC,Urine 2 /hpf (0-5)
[2022-01-28 09:52] LABS: RBC Morphology Normal
[2022-01-28] MEDS ORDERED: DIPHENOX-ATROP STARTER PACK 8 TAB BTL PO STA (10:15)
[2022-01-28] MEDS ORDERED: ONDANSETRON 4 MG ODT STARTER PACK 2 TAB BTL PO STA (10:15)
[2022-01-28 10:31] VITALS: BP 126/78; PULSE 80
[2022-01-28 16:59] LABS: Hepatitis B Core IgM Nonreactive (Nonreactive); Hepatitis B Surface Antigen Nonreactive (Nonreactive); Hepatitis C IgG Antibody Nonreactive (Nonreactive)
[2022-01-31 06:59] LABS: Hepatitis A Antibody IgM Negative
== END 2022-01-28 10:31 | disposition home or self-care (01) ==
LOC: EC 08:23
DX: K52.9 Noninfective gastroenteritis and colitis, unspecified (principal); Z88.2 Allergy status to sulfonamides
CPT/HCPCS: 36415; 80053; 80074; 82150; 83690; 85025; 81001; 81025; 99284; 96374; 96361; J2405; S0119

== ENCOUNTER 2023-01-23 10:39 | Inpatient (IN) | payer BC ==
[2023-01-23] MEDS ORDERED: TERBUTALINE 1 MG/ML VIAL SQ PRN (10:56)
[2023-01-23] MEDS ORDERED: CARBOPROST TROMETHAMINE 250 MCG/ML 1 ML AMP IM PRN (10:56)
[2023-01-23] MEDS ORDERED: METHYLERGONOVINE 0.2 MG/ML 1 ML AMP IM PRN (10:56)
[2023-01-23] MEDS ORDERED: AMPICILLIN 2,000 MG in SODIUM CHLORIDE 0.9% 100 ML IVPB STA (10:56)
[2023-01-23] MEDS ORDERED: miSOPROStoL 200 MCG TAB PO PRN (10:56)
[2023-01-23] MEDS ORDERED: OXYTOCIN 10 UNIT/ML 1 ML VIAL IM PRN (10:56)
[2023-01-23] MEDS ORDERED: LIDOCAINE 0.5% (PF) 5 MG/ML (50 ML SDV) SQ PRN (10:56)
[2023-01-23] MEDS ORDERED: TRANEXAMIC ACID IN NACL,ISO-OS 1,000 MG in EMPTY BAG 1 BAG IV PRN (10:56)
[2023-01-23] MEDS ORDERED: OXYTOCIN 30 UNITS/500 ML NS 30 UNIT in SALINE 1 500ML.BAG IV SCH ×2 (11:00→12:29)
[2023-01-23] MEDS: LACTATED RINGERS 1,000 ML IV SCH ×3 (11:19→14:47)
[2023-01-23] MEDS ORDERED: SODIUM CHLORIDE 0.9% 100 ML BAG ONE (11:22)
[2023-01-23] MEDS ORDERED: fentaNYL (PF) 50 MCG/ML 5 ML AMP ONE (11:22)
[2023-01-23] MEDS ORDERED: ROPIVACAINE 5 MG/ML 20 ML AMPULE ONE (11:22)
[2023-01-23] MEDS ORDERED: ONDANSETRON 4 MG/2 ML VIAL IVP PRN (11:35)
[2023-01-23 11:42] LABS: Basophils % (A) 0 %; Eosinophils % (A) 0 %; HCT 41.6 % (34.0-46.0); HGB 14.3 gm/dL (11.4-16.0); Lymphocytes # (A) 0.7 k/uL (1.0-4.8); Lymphocytes % (A) 10 %; MCH 29.7 pg (25.0-35.0); MCHC 34.3 g/dL (31.0-37.0); MCV 86.7 fL (80.0-100.0); Mean Platelet Volume 8.5; Monocytes # (A) 0.2 k/uL (0-1.0); Monocytes % (A) 3 %; Neutrophils # (A) 5.8 k/uL (1.3-7.7); Neutrophils % (A) 85 %; Platelet Count 187 k/uL (150-450); RDW 13.5 % (11.5-15.5); WBC 6.8 k/uL (3.8-10.6)
--- NOTE | 2023-01-23 12:02 | P.HPOB ---
History of Present Illness H&P Date: 01/23/23 Chief Complaint: Contractions This patient is a pleasant 32-year-old 4 para 2 female estimated date of confinement 01/26/2023 estimated gestational age 39-4/7 weeks who presents to labor and delivery with complaints of regular painful contractions. Patient's also developed a "stomach bug "and has been having some nausea and vomiting this morning. On admission to labor and delivery patient was found to be 8 cm dilated in active labor. care is complicated by an EIF which did resolve by 35 weeks. She's been monitored with nonstress tests and serial gr owth ultrasounds which have been normal. Patient's otherwise has been uncomplicated. Review of Systems Genitourinary: Reports Menstruation: Reports amenorrhea Past Medical History Additional Past Medical History / Comment(s): Congenital right retinoblastoma. Age 4. Patient's had 2 previous spontaneous vaginal deliveries. History of Any Multi-Drug Resistant Organisms: None Reported Additional Past Surgical History / Comment(s): Left ear surgery and right eye surgery. Past Anesthesia/Blood Transfusion Reactions: No Reported Reaction Past Psychological History: No Psychological Hx Reported Smoking Status: Never smoker Past Alcohol Use History: None Reported Past Drug Use History: None Reported - Past Family History Father Family Medical History: Cancer Additional Family Medical History / Comment(s): cancer Medications and Allergies Home Medications Medication Instructions Recorded Confirmed Type Pnv No.95/Ferrous Fum/Folic AC 1 each PO DAILY 10/06/19 01/23/23 History [ Multivitamin Tablet] Allergies Allergy/AdvReac Type Severity Reaction Status Date / Time Sulfa (Sulfonamide Allergy Unknown Verified 01/28/22 08:27 Antibiotics) Childhood Exam Intake and Output 01/22/23 01/23/23 01/23/23 22:59 06:59 14:59 Other: Weight 70.307 kg - OBG Physical Exam Abdomen: bowel sounds normal, no diffuse tenderness, no bruit present, no guarding noted, no hepatomegaly, no splenomegaly, no mass Vulva: both: normal Vagina: normal moisture, no discharge Cervix: no lesion (Cervix is 8-9 cm completely effaced 0 station), no discharge Uterus: enlarged (Fundal height is consistent with gestational age) Results labs show she is O positive, rubella immune, RPR nonreactive, hepatitis B is negative, HIV is nonreactive, Glucola was normal, group B strep was negative. Patient did have a positive group B strep in a previous . Most recent ultrasound showed normal anatomy and growth Result Diagrams: 01/23/23 11:10 Abnormal Lab Results - Last 24 Hours (Table) 01/23/23 Range/Units 11:10 Lymphocytes # 0.7 L (1.0-4.8) k/uL Assessment and Plan Assessment: This is a pleasant 32-year-old 4 para 2 female 39-4/7 weeks gestation in active labor. Patient requests an epidural at this time. Also although her group B strep was negative I'm going to give her a dose of antibiotics due to history of positive strep in a previous . At this point we anticipate vaginal delivery. (1) 39 weeks gestation of Current Visit: No Status: Acute Code(s): Z3A.39 - 39 WEEKS GESTATION OF SNOMED Code(s): 45162794 (2) Normal labor Current Visit: No Status: Acute Code(s): O80 - ENCOUNTER FOR FULL-TERM UNCOMPLICATED DELIVERY; Z37.9 - OUTCOME OF DELIVERY, UNSPECIFIED SNOMED Code(s): 44821541
[2023-01-23] MEDS ORDERED: HYDROCORTISONE 2.5% RECTAL CREAM 30 GM TUBE RECTAL PRN (12:29)
[2023-01-23] MEDS ORDERED: ZOLPIDEM 5 MG TAB PO PRN (12:29)
[2023-01-23] MEDS ORDERED: SIMETHICONE 80 MG CHEWABLE PO PRN (12:29)
[2023-01-23] MEDS ORDERED: diphenhydrAMINE 50 MG/ML 1 ML VIAL IVP PRN (12:29)
[2023-01-23] MEDS ORDERED: BENZOCAINE/MENTHOL SPRAY 1 GM/SPRAY AEROSOL TOPICAL PRN (12:29)
[2023-01-23] MEDS ORDERED: LANOLIN CREAM 5 GM TUBE TOPICAL PRN (12:29)
[2023-01-23] MEDS ORDERED: diphenhydrAMINE 25 MG CAP PO PRN (12:29)
--- NOTE | 2023-01-23 13:16 | P.PROBDLV ---
Vaginal Delivery Note - . Vaginal Delivery Note: Normal spontaneous vaginal delivery viable male infant Apgars 9 and 9 delivery time is 1216 hrs. Please see dictated H&P for intimate details of this patient's admission. Brief summary this is a pleasant 32-year-old 4 para 2 female 39-4/7 weeks gestation admitted to labor and delivery with regular painful contractions. On admission patient is 8 cm dilated with bulging bag. Patient has a negative group B strep with a history of positive with a previous therefore she is given 2 g of ampicillin. Patient does request an epidural at this time in this is placed with good relief. After the appropriate forms placed, she is found to be 9 cm dilated has artificial rupture membranes for clear fluid. Approximately 15 minutes later patient is complete. Patient pushes the head to the perineum with approximately 3 contractions. Posterior perineum is supported we have controlled delivery of the 's head over the intact perineum. Mouth and nares are bulb suctioned. There is no evidence of a nuchal cord. The infant is straight occiput anterior presentation. With gentle downward traction we then have deliver the anterior and posterior shoulder and rest this infant's body. This is a vigorous viable male infant Apgars are 9 and 9 delivery time was 1216 hrs. After delivery of the infant the umbilical cord is immediately clamped and cut due to history of jaundice with a previous baby. The placenta is also spontaneously delivered at this time appears to be intact with a marginal cord insertion. Inspection of the perineum shows no lacerations and no repairs required estrogen blood loss is about 1 50 mL. There are no comp lications. All counts correct 3. Mother and baby are stable in the delivery room.
[2023-01-23] MEDS: ACETAMINOPHEN TAB 325 MG TAB PO PRN (17:56)
[2023-01-23] MEDS: IBUPROFEN 600 MG TAB PO PRN (20:40)
[2023-01-23] MEDS: SENNOSIDES-DOCUSATE SODIUM 1 EACH TAB PO SCH ×2 (20:40→21:38)
[2023-01-24] MEDS: IBUPROFEN 600 MG TAB PO PRN (04:19)
[2023-01-24 06:08] LABS: Basophils % (A) 0 %; Eosinophils # (A) 0.1 k/uL (0-0.7); Eosinophils % (A) 1 %; HCT 33.8 % (34.0-46.0); HGB 11.6 gm/dL (11.4-16.0); Lymphocytes # (A) 1.6 k/uL (1.0-4.8); Lymphocytes % (A) 28 %; MCHC 34.4 g/dL (31.0-37.0); MCV 87.1 fL (80.0-100.0); Mean Platelet Volume 8.2; Monocytes # (A) 0.2 k/uL (0-1.0); Monocytes % (A) 4 %; Neutrophils # (A) 3.7 k/uL (1.3-7.7); Neutrophils % (A) 64 %; Platelet Count 157 k/uL (150-450); RBC 3.88 m/uL (3.80-5.40); RDW 13.7 % (11.5-15.5); WBC 5.8 k/uL (3.8-10.6)
--- NOTE | 2023-01-24 06:16 | P.PNOBGVD ---
Subjective - Subjective Patient reports: Reports appetite normal, Reports voiding normally, Reports pain well controlled, Reports ambulating normally : doing well Objective - Latest Vital Signs Latest vital signs: Vital Signs Temp Pulse Resp BP Pulse Ox 01/24/23 00:00 98.7 F 76 15 108/72 98 01/23/23 20:00 98.6 F 86 15 98/57 98 01/23/23 17:30 100.3 F H 98 17 99/67 99 01/23/23 16:00 99.6 F 102 H 18 102/60 99 01/23/23 14:29 98.5 F 97 16 106/56 100 01/23/23 13:59 98.5 F 96 16 106/62 01/23/23 13:29 98.5 F 99 16 98/66 01/23/23 13:14 98.5 F 104 H 16 105/55 100 01/23/23 12:59 98.4 F 106 H 18 107/55 100 01/23/23 12:42 99.8 F H 108 H 18 119/63 100 01/23/23 12:29 97.9 F 107 H 18 108/54 99 01/23/23 10:55 97.9 F 90 20 99 Intake and Output 01/23/23 01/23/23 01/24/23 14:59 22:59 06:59 Other: Voiding Method Toilet Toilet # Voids 1 1 Weight 70.307 kg - Exam Lungs: bilateral: normal Chest: Normal S1, Normal S2 Extremities: Present: normal Abdomen: Present: normal appearance, soft Uterus: Present: normal, firm - Labs Labs: Abnormal Lab Results - Last 24 Hours (Table) 01/23/23 01/24/23 Range/Units 11:10 05:16 Hct 33.8 L (34.0-46.0) % Lymphocytes # 0.7 L (1.0-4.8) k/uL Assessment and Plan Assessment: day #1. Patient is resting without complaints and wishes to go home. Vital signs are stable she is afebrile. She did have some low-grade temperatures yesterday afternoon but this she feels is most likely related to some infection that her children have at home. Repeat CBC is normal. Uterus is firm nontender and she is having normal lochia. My impression this is a normal course. There is no evidence of infection and I do think she is stable to discharge home as long she continues to feel well today. Plan is to continue routine care and discharge home later today (1) 39 weeks gestation of Current Visit: No Status: Acute Code(s): Z3A.39 - 39 WEEKS GESTATION OF SNOMED Code(s): 77304721 (2) Normal labor Current Visit: No Status: Acute Code(s): O80 - ENCOUNTER FOR FULL-TERM UNCOMPLICATED DELIVERY; Z37.9 - OUTCOME OF DELIVERY, UNSPECIFIED SNOMED Code(s): 68092877
--- NOTE | 2023-01-24 06:23 | P.DS ---
Providers Date of admission: 01/23/23 10:51 Expected date of discharge: 01/24/23 Attending physician: Bala Ruiz Primary care physician: Stated None - Discharge Diagnosis(es) (1) 39 weeks gestation of Current Visit: No Status: Acute (2) Normal labor Current Visit: No Status: Acute Hospital Course: Please see dictated H&P for intimate details of this patient's admission. In brief summary this is a pleasant 32-year-old 4 para 2 female 39-4/7 weeks gestation admitted to labor and delivery in active labor. Patient quickly goes on to have a vaginal delivery viable male infant. Please see dictated delivery note. day #1 patient's felt stable for discharge home follow up with me in 6 weeks. Procedures: Normal spontaneous vaginal delivery Patient Condition at Discharge: Good Plan - Discharge Summary New Discharge Prescriptions: New Ibuprofen [Motrin] 600 mg PO Q6HR PRN #30 tab PRN Reason: Mild Pain (Scale 1 To 3) No Action Pnv No.95/Ferrous Fum/Folic AC [ Multivitamin Tablet] 1 each PO DAILY Discharge Medication List Pnv No.95/Ferrous Fum/Folic AC [ Multivitamin Tablet] 1 each PO DAILY 10/06/19 [History] Ibuprofen [Motrin] 600 mg PO Q6HR PRN #30 tab 01/24/23 [Rx] Follow up Appointment(s)/Referral(s): Bala Ruiz MD [STAFF PHYSICIAN] - 6 Weeks Patient Instructions/Handouts: Vaginal Delivery (DC) Activity/Diet/Wound Care/Special Instructions: No intercourse or anything per vagina for 6 weeks. Please call if any fever, chills, excessive vaginal bleeding, and/or abdominal pain Discharge Disposition: HOME SELF-CARE
[2023-01-24 08:10] VITALS: BP 93/56; PULSE 110; RESP 16; TEMP 97.9
[2023-01-24] MEDS: SENNOSIDES-DOCUSATE SODIUM 1 EACH TAB PO SCH (08:11)
[2023-01-24] MEDS: ACETAMINOPHEN TAB 325 MG TAB PO PRN (10:38)
== END 2023-01-24 13:40 | disposition home or self-care (01) | DRG 807 ==
LOC: FBPOP 10:39 → 4FBP 10:51
PROVIDERS: ADMIT Obstetrics & Gynecology; ATTEND Obstetrics & Gynecology
PROC: 10E0XZZ Delivery of Products of Conception, External Approach (ICD-10-PCS; principal; 2023-01-23)
PROC: 10907ZC Drainage of Amniotic Fluid, Therapeutic from Products of Conception, Via Natural or Artificial Opening (ICD-10-PCS; 2023-01-23)
DX: O69.89X0 Labor and delivery complicated by other cord complications, not applicable or unspecified (principal); Z37.0 Single live birth; O62.3 Precipitate labor; Z3A.39 39 weeks gestation of pregnancy; Z88.2 Allergy status to sulfonamides
CPT/HCPCS: 85025; 86850; 86900; 86901